=== PATIENT | male | born 2000 | race Caucasian/White ===

== ENCOUNTER 2022-11-17 14:15 | Emergency (ER) | payer BC ==
[2022-11-17 14:21] VITALS: RESP 18
[2022-11-17] MEDS ORDERED: DIPH,PERTUS(ACELL)TETVAC-LF 0.5 ML VIAL IM ONE (14:29)
[2022-11-17] MEDS ORDERED: LIDOCAINE 1% INJ 10MG/ML (20 ML MDV) SQ ONE (14:30)
[2022-11-17] MEDS ORDERED: BACITRACIN OINT 1 EACH PACKET TOPICAL ONE (15:35)
--- NOTE | 2022-11-17 15:47 | ED ---
General Adult HPI - General Chief complaint: Wound/Laceration Stated complaint: LEFT HAND SAW CUT Time Seen by Provider: 11/17/22 14:25 Source: patient Mode of arrival: ambulatory Limitations: no limitations - History of Present Illness Initial comments: 22-year-old male presents to the ED with a chief complaint of laceration. Patient states that he was cutting metal with a bandsaw when the saw blade snapped and cut his left hand. Now notes a laceration to his left hand. No other injuries at this time. Tetanus status not up-to-date. No other com plaints. - Related Data Previous Rx's Medication Instructions Recorded Ondansetron Odt [Zofran ODT] 4 mg PO Q8HR PRN #10 tab 09/25/22 Cephalexin [Keflex] 500 mg PO Q6HR 5 Days #20 cap 11/17/22 Allergies Allergy/AdvReac Type Severity Reaction Status Date / Time No Known Allergies Allergy Verified 11/17/22 14:18 Review of Systems ROS Statement: Those systems with pertinent positive or pertinent negative responses have been documented in the HPI. ROS Other: All systems not noted in ROS Statement are negative. Past Medical History Past Medical History: No Reported History History of Any Multi-Drug Resistant Organisms: None Reported Past Surgical History: Orthopedic Surgery Past Psychological History: No Psychological Hx Reported Smoking Status: Never smoker Past Alcohol Use History: None Reported Past Drug Use History: None Reported General Exam Limitations: no limitations General appearance: alert, in no apparent distress Eye exam: Present: normal appearance Respiratory exam: Present: normal lung sounds bilaterally Cardiovascular Exam: Present: regular rate, normal rhythm Extremities exam: Present: other (Approximately 3-1/2 cm laceration small to the thenar eminence. Full active range of motion at the thumb with good opposition and extension.) Neurological exam: Present: alert, oriented X3 Skin exam: Present: warm, dry Course Vital Signs 11/17/22 14:18 Temperature 97.9 F Pulse Rate 78 Respiratory 18 Rate Blood Pressure 155/85 O2 Sat by Pulse 100 Oximetry Procedures - Laceration Laceration #1 Site: upper extremity Size (cm): 3 Description: linear Depth: simple, single layer Sedation/Analgesia: none Anesthetic Used: lidocaine 1%, without epi Anesthesia Technique: local infiltration Amount (mls): 4 Pre-repair: wound explored, irrigated extensively Size of Sutures: 5-0 Number of Sutures: 6 Technique: simple, interrupted Patient Tolerated Procedure: well, no complications Medical Decision Making - Medical Decision Making Was pt. sent in by a medical professional or institution ([facility], PHARMACEUTICAL BOTANIST, urgent care, hospital, or [facility]...) When possible be specific @ -No Did you speak to anyone other than the patient for history (EMS, parent, family, police, friend...)? What history was obtained from this source @ -No Did you review nursing and triage notes (agree or disagree)? Why? @ -I reviewed and agree with nursing and triage notes Were old charts reviewed (outside hosp., previous admission, EMS record, old EKG, old radiological studies, urgent care reports/EKG's, [facility] records)? Report findings @ -No old charts were reviewed Differential Diagnosis (chest pain, altered mental status, abdominal pain women, abdominal pain men, vaginal bleeding, weakness, fever, dyspnea, syncope, headache, dizziness, GI bleed, back pain, seizure, CVA, palpatations, mental health, musculoskeletal)? @ -Acute fracture, acute tendon injury. This is not meant to be an all- inclusive list. EKG interpreted by me (3pts min.). @ -None X-rays interpreted by me (1pt min.). @ -None done CT interpreted by me (1pt min.). @ -None done U/S interpreted by me (1pt. min.). @ -None done What testing was considered but not performed or refused? (CT, X-rays, U/S, labs)? Why? @ -None What meds were considered but not given or refused? Why? @ -None Did you discuss the management of the patient with other professionals (professionals i.e. [facility], PHARMACEUTICAL BOTANIST, lab, RT, psych nurse, social work associate, web marketing strategist, teacher, security patrol officer, outpatient case manager)? Give summary @ -No Was smoking cessation discussed for >3mins.? @ -No Was critical care preformed (if so, how long)? @ -No Were there social determinants of health that impacted care today? How? (Homelessness, low income, unemployed, alcoholism, drug addiction, transportation, low edu. Level, literacy, decrease access to med. care, longterm, r ehab)? @ -No Was there de-escalation of care discussed even if they declined (Discuss DNR or withdrawal of care, Hospice)? DNR status @ -No What co-morbidities impacted this encounter? (DM, HTN, Smoking, COPD, CAD, Cancer, CVA, ARF, Chemo, Hep., AIDS, mental health diagnosis, sleep apnea, morbid obesity)? @ -None Was patient admitted / discharged? Hospital course, mention meds given and route, prescriptions, significant lab abnormalities, going to OR and other pertinent info. @ -Discharge. Patient had laceration repaired. Please see procedure note further details. Tetanus updated. After laceration repair, applied bacitracin. Discussed wound care. Provided prescription for Keflex. Discharged home in stable condition. Discussed return precautions with patient who verbalizes agreement. Undiagnosed new problem with uncertain prognosis? @ -No Drug Therapy requiring intensive monitoring for toxicity (Heparin, Nitro, Insulin, Cardizem)? @ -No Were any procedures done? @ -Yes, laceration repair Diagnosis/symptom? @ -Laceration to left hand Acute, or Chronic, or Acute on Chronic? @ -Acute Uncomplicated (without systemic symptoms) or Complicated (systemic symptoms)? @ -Uncomplicated Side effects of treatment? @ -No Exacerbation, Progression, or Severe Exacerbation? @ -No Poses a threat to life or bodily function? How? (Chest pain, [place], CA, pneumonia, PE, COPD, DKA, ARF, appy, cholecystitis, CVA, Diverticulitis, Homicidal, Suicidal, threat to staff... and all critical care pts) @ -No Disposition Clinical Impression: Laceration Disposition: HOME SELF-CARE Condition: Good Instructions (If sedation given, give patient instructions): Care For Your Stitches (ED) Additional Instructions: Please return to the Emergency Department if symptoms worsen or any other concerns. Please return in 10-14 days for suture removal. Monitor for signs of infection. Prescriptions: Cephalexin [Keflex] 500 mg PO Q6HR 5 Days #20 cap Is patient prescribed a controlled substance at d/c from ED?: No Referrals: Jean-Paul Shea MD [Primary Care Provider] - 1-2 days Time of Disposition: 15:51
[2022-11-17 16:18] VITALS: BP 118/65; PULSE 77; TEMP 98.1
== END 2022-11-17 15:55 | disposition home or self-care (01) ==
LOC: EC 14:15
DX: S61.412A Laceration without foreign body of left hand, initial encounter (principal); Z23 Encounter for immunization; W31.2XXA Contact with powered woodworking and forming machines, initial encounter
CPT/HCPCS: 90715; 12002; 99282; 90471; J2001